=== PATIENT | male | born 1985 | race Caucasian/White ===

== ENCOUNTER → 2023-09-25 07:47 | Outpatient (REF) | payer MEDICARE, OTHER, SELFPAY | LOC: HWRAD 07:47 | PROVIDERS: ATTENDING PHYSICIAN Internal Medicine; FAMILY PHYSICIAN Family Medicine | DX: R10.13 Epigastric pain (principal) | CPT/HCPCS: 76700 ==

== ENCOUNTER → 2023-12-27 12:27 | Outpatient (REF) | payer OTHER, SELFPAY | LOC: HWRAD 12:27 | PROVIDERS: ATTENDING PHYSICIAN Family Medicine | DX: Q98.4 Klinefelter syndrome, unspecified (principal); M25.552 Pain in left hip; S73.005A Unspecified dislocation of left hip, initial encounter | CPT/HCPCS: 73523 ==

== ENCOUNTER 2024-09-25 01:44 | Emergency (ER) | payer OTHER, SELFPAY ==
[2024-09-25] VITALS (9 sets, daily range): BP systolic 115–155; BP diastolic 70–116; BMI 32.6
[2024-09-25] MEDS: MOTRIN 600 MG PO (02:04)
[2024-09-25 02:13] LABS: COVID-19 Antigen Negative (Negative)
[2024-09-25] MEDS: TYLENOL 1000 MG PO (06:40)
[2024-09-25] MEDS: NSS 1000 IV (06:41)
--- NOTE | 2024-09-25 06:42 | ED.GENMED ---
History of Present Illness
General
Chief Complaint: Weakness
Source: patient and spouse
Exam Limitations: none
Time Seen by Provider: 09/25/24 06:04
Nursing documentation reviewed up to this point in time: agreed with
History of Present Illness
History of Present Illness:
38-year-old male with a past medical history of asthma who presents to the emergency department for evaluation of flulike illness. Patient reports he has been feeling unwell for the past few days with low-grade fever and chills, myalgias, mild
cough and congestion. Apparently he was just around family who all were positive for influenza; he saw his primary doctor earlier this week and was prescribed Tamiflu and is taking this x 3 days. Despite this last night he was having high fever
and shakes and severe myalgias and so he came to the emergency room to be evaluated. He has been taking Tylenol and Motrin in addition to Tamiflu, last Tylenol was at 8 PM last night. Although he has had a cough he denies any significant shortness
of breath. He denies any chest pain. He has not had any vomiting or diarrhea although he does have some mild nausea. Denies any other complaints.
Past History
Past History
ED Past Medical History: Asthma and Other (Syncope, Conversion Disorder); Negative CAD
ED Past Surgical History: Orthopedic (Left shoulder surgery, Back implant device) and Other (Hernia X 2); Negative Cardiac
Social History
Tobacco: Non-smoker
Alcohol: None
Drug: None
Personal:
Living: with family
Employment: Employed
Family History
Family History: Negative Early CAD or Sudden
Review of Systems
Review of Systems
All Other Systems: ROS reviewed and negative except as documented in HPI and ROS
Constitutional: Reports fever and chills
EENT: Reports other (Nasal congestion); Denies sore throat
Respiratory: Reports cough; Denies trouble breathing
Cardiac: Denies chest pain
ABD/GI: Denies abdominal pain, nausea, vomiting or diarrhea
: Denies flank pain
Musculoskeletal: Reports muscle pain (Myalgias)
Neurological: Denies headache
Phy Exam
Physical Exam
Physical Exam:
General: Awake, alert, oriented x3; nontoxic
Head: Normocephalic, atraumatic
Eyes: Conjunctiva normal, EOMI
Throat: Airway intact, somewhat dry mucous membranes
Neck: Trachea midline, supple without meningismus
Lungs: Clear to auscultation bilaterally, no wheezing, rales, rhonchi
Heart: Regular rate and rhythm, no murmurs, gallops, or rubs
Abd: Soft, non distended, nontender
Neuro: No gross deficits
Extremities: Warm and well-perfused with no edema
Scores
Heart Failure Risk
Heart Failure Risk Score: Not Applicable
Heart Score for Chest Pain Patients
STEMI patient?: Not applicable
Withdrawal Assessment of Alcohol
Withdrawal Assessment Completed?: Not applicable
Sepsis
Sepsis Screening
Sepsis Assessment: Sepsis Ruled Out
Sepsis Screen
Sepsis Screen: Sepsis Ruled Out
Date: 09/25/24
Time: 10:40
Course
Orders/Labs/Results
Orders:
Orders
09/25/24 01:55
COVID-19 Antigen Urgent
Source: Nasal Swab
Influenza A+B Rapid Molecular Urgent
NORI Source: Nasal Swab
Specimen Description:
09/25/24 02:01
Ibuprofen [Motrin] 600 mg .ROUTE .STK-MED ONE
09/25/24 02:04
Ibuprofen [Motrin] 600 mg PO NOW STA
09/25/24 02:12
EKG [Electrocardiogram (*1)] Urgent
Reason for Study: Fatigue / Weakness
Other Reason for Exam: hyperventilating
09/25/24 02:13
EKG- Treatment ONCE
09/25/24 05:25
CPK [Creatine Phosphokinase] Urgent
Complete Blood Count/With Diff Urgent
Comprehensive Metabolic Panel Urgent
09/25/24 06:05
CR Chest - 2 Views Urgent
Comment:
Reason For Exam: cough, fever, flu+
09/25/24 06:28
Acetaminophen [Tylenol] 1,000 mg PO NOW STA
09/25/24 06:29
0.9% Sodium Chloride 1000 ml [Nss] 1,000 ml IV BOLUS
09/25/24 08:47
Pregabalin [Lyrica] 200 mg PO NOW STA
09/25/24 08:55
Ketorolac [Toradol] 15 mg IV NOW STA
09/25/24 09:16
Duloxetine Delayed Release [Cymbalta Delayed Release] 30 mg PO NOW STA
09/25/24 09:18
Oxycodone Controlled Release [Oxycontin (Controlled Release)] 40 mg PO NOW STA
Abnormal Lab Results
09/25/24
05:25
Absolute Lymphs (auto) 1.1 L 10^3/uL
(1.2-3.4)
Absolute Monos (auto) 0.9 H 10^3/uL
(0.1-0.6)
Monocytes % 16.5 H %
(1.7-9.3)
Creatine Kinase 213 H U/L
(55-170)
09/25/24 05:25
09/25/24 05:25
Vital Signs
Initial and Last Documented VS:
Initial Vital Signs
Temp Pulse Resp BP Pulse Ox
36.6 C 108 36 131/85 100
09/25/24 01:48 09/25/24 01:48 09/25/24 01:48 09/25/24 01:48 09/25/24 01:48
Last Documented Vital Signs
Temp Pulse Resp BP Pulse Ox
36.7 C 98 28 138/79 99
09/25/24 10:39 09/25/24 10:30 09/25/24 10:30 09/25/24 10:16 09/25/24 08:00
MDM/Problems Addressed
Differential Diagnosis Includes:
Influenza, pneumonia, rhabdomyolysis
MDM/Problems Addressed:
38-year-old male presents for evaluation of worsening fever and chills, myalgias in the setting of influenza�he was not tested as an outpatient but multiple family members positive for flu and he has been on Tamiflu x 3 days. Tachycardic and
tachypneic in triage, vitals normalized by my assessment he is breathing comfortably. He had viral swabs sent in triage which confirmed that he is positive for influenza. He had a chest x-ray reviewed by me shows no acute pneumonia. Will send off
basic labs including a CBC and a CMP, CPK. Provide IV fluids, Tylenol for supportive care. Reassess after the above.
Labs reviewed CBC and CMP unremarkable, CPK marginal. Chest x-ray no pneumonia on my independent review. Vitals normalized, patient well-appearing still with some mild malaise but feeling a bit better. Stable for discharge advised him regarding
supportive care with Tylenol/Motrin, plenty of fluids. All questions answered.
*Radiology
Radiology exam reviewed: preliminary read by ED provider
*Pulse Oximetry
Patient hypoxic: no
*Critical Care Note
Total Time (30-74mins, 75-104mins- exclusive of procedures): Not Applicable
Data Reviewed
Review of Other/Old Records Reveals: Labs and Records
Source: patient and spouse
ED Attending Note
-
Portions of this chart may have been created with voice recognition software.� Occasional wrong word or��sound alike� substitutions may have occurred due to the inherent limitations of voice recognition software.
Discharge Plan
Departure
Patient Disposition: Home (Routine Discharge)
Date of Disposition: 09/25/24
Time of Disposition: 10:25
Patient with high blood pressure during this ER visit?: No
Discharge Problem:
Influenza A
Instructions: Flu in adults - ED discharge instructions
Prescriptions:
No Action
pregabalin 100 MG capsule
100 mg PO DAILY@1400
Patient Comments:
12/01/2020: last filled 10/27/20, 30 tabs for 30 days from [facility]
pregabalin [Lyrica] 150 MG capsule
150 mg PO BID
Patient Comments:
12/01/2020: last filled 11/14/20, 60 tabs for 30 days from [facility]
oxycodone 20 MG tablet
40 mg PO Q4HPRN PRN (Reason: chronic pain)
Patient Comments:
12/01/2020: last filled 11/17/20, 80 tabs for 10 days from [facility]
duloxetine 60 MG capsule,delayed release(DR/EC)
60 mg PO BID
hydroxyzine HCl 25 MG tablet
25 - 50 mg PO Q6HPRN PRN (Reason: itching)
fluticasone propion-salmeterol [Wixela Inhub] 1 EACH blister with device
1 puff inhalation R BID
albuterol sulfate 2.5 MG/3 ML solution for nebulization
2.5 mg inhalation R Q6HPRN PRN (Reason: sob)
levothyroxine 50 MCG tablet
50 mcg PO DAILY
montelukast 10 MG tablet
10 mg PO DAILY
albuterol sulfate 1 PUFF HFA aerosol inhaler
2 puff inhalation R Q4HPRN PRN (Reason: sob)
albuterol sulfate 2.5 MG/3 ML solution for nebulization
2.5 mg inhalation R Q4HPRN PRN (Reason: wheezing) Qty: 20 0RF
prednisone 10 MG tablet
10 mg PO DAILY Qty: 30 0RF
Rx Instructions:
40 mg day 1,2,3; 30 mg day 4,5,6; 20 mg day 7,8,9; 10 mg days 10, 11, 12
oxycodone [OxyContin] 20 MG tablet,oral only,ext.rel.12 hr
60 mg PO Q12
doxycycline hyclate 100 mg capsule
100 mg PO DAILY 7 Days Qty: 7 0RF
Referrals:
UNKNOWN - PT DOES,NOT KNOW [Family Provider] -
Activity Restrictions/Additional Instructions:
Thank you for visiting the Emergency Department at [facility].
1. Please schedule a follow up appointment as directed. Call first thing tomorrow morning to make an appointment.
2. If indicated, please take your medications as instructed and indicated on discharge paperwork.
3. If any of your symptoms do not improve, or persist, or become more severe within 6-12 hours, please return to the emergency department for further care.
4. Please return to the emergency department if you develop a headache, neck pain/stiffness, fever greater than 100.4F, chest pain, shortness of breath, persistent nausea, vomiting, slurred speech, difficulty walking, numbness/tingling, weakness,
signs of infection or any other symptoms that are worrisome to you.
Please call [phone] if you have any questions.
Interventions
Interventions:
*Risk Screen - Suicide Last Done: 09/25/24 01:48
*General Assessment Last Done: 09/25/24 01:55
*Neglect/Abuse Screening Last Done: 09/25/24 01:55
ED- Fall Risk Assessment Last Done: 09/25/24 01:55
*ED COVID-19 Vaccine History Last Done: 09/25/24 01:55
ED- Cardiac Assessment Last Done: 09/25/24 07:10
ED- Neurological Assessment Last Done: 09/25/24 07:10
ED- Pulmonary Assessment Last Done: 09/25/24 07:10
Discharge Date and Time
Print Language: [id number]
[2024-09-25 07:45] LABS: % Basophils 0.6 % (0-2); % Eosinophils 1.1 % (0-6); % Immature Granulocytes 0.2 % (0-0.5); % Lymphocytes 20.5 % (20.5-51.1); % Monocytes 16.5 % (1.7-9.3); % Neutrophils 61.1 % (42.2-75.2); Absolute Eosinophils 0.1 10^3/uL (0-0.7); Absolute Lymphocytes 1.1 10^3/uL (1.2-3.4); Absolute Monocytes 0.9 10^3/uL (0.1-0.6); Absolute Neutrophils 3.2 10^3/uL (1.4-6.5); Hematocrit 46.5 % (39.0-52.0); Hemoglobin 15.8 g/dL (13.0-18.0); Mean Corpuscular Hgb 28.1 pg (27.0-31.0); Mean Corpuscular Volume 82.7 fL (80.0-94.0); Mean Platelet Volume 10.4 fL (7.4-10.4); Nucleated Red Blood Cells % 0 % (-); Platelet Count 210 10^3/uL (130-400); Red Blood Cell Count 5.62 10^6/uL (4.70-6.10); Red Cell Dist. Width 13.3 % (11.5-14.5); White Blood Cell Count 5.2 10^3/uL (4.8-10.8)
[2024-09-25 07:53] LABS: ALT (SGPT) 28 U/L (0-50); AST (SGOT) 36 U/L (17-59); Albumin 4.3 g/dl (3.5-5.0); Alkaline Phosphatase 77 U/L (38-126); Blood Urea Nitrogen 14 mg/dl (9-20); Calcium 8.7 mg/dl (8.4-10.2); Carbon Dioxide 29 mmol/L (22-30); Chloride 101 mmol/L (98-107); Creatine Phosphokinase 213 U/L (55-170); Glucose 95 mg/dl (70-99); Potassium 4.6 mmol/L (3.5-5.1); Sodium 140 mmol/L (135-145); Total Bilirubin 0.9 mg/dl (0.2-1.3); Total Protein 7.3 g/dl (6.3-8.2)
[2024-09-25 08:25] LABS: Estimated Creatinine Clearance > 125 ml/min; eGFR > 60.00
[2024-09-25] MEDS: LYRICA 200 MG PO (08:54)
[2024-09-25] MEDS: TORADOL 15 MG IV (09:01)
[2024-09-25] MEDS: CYMBALTA DELAYED RELEASE 30 MG PO (09:29)
[2024-09-25] MEDS: OXYCONTIN (CONTROLLED RELEASE) 40 MG PO (09:38)
== END 2024-09-25 11:00 | disposition home or self-care (01) ==
LOC: EMR 01:44
PROVIDERS: Emergency Medicine; EMERGENCY PHYSICIAN Emergency Medicine
DX: J10.1 Influenza due to other identified influenza virus with other respiratory manifestations (principal); J45.909 Unspecified asthma, uncomplicated
CPT/HCPCS: 99283; 96374; 96361; 71046; 80053; 82550; 85025; 87502; 87811; 93005